=== PATIENT | male | born 1965 | race Hispanic/Latino ===

== ENCOUNTER 2017-08-14 05:58 | Observation (INO) | payer OTHER ==
[2017-08-13 10:48] LABS: BASOPHILS % (AUTO) 1.1 % (0.0-5.0); EOSINOPHILS % (AUTO) 2.2 % (0.0-8.0); HEMATOCRIT 41.2 % (42-54); LYMPHOCYTES % (AUTO) 31.4 % (21.0-51.0); MEAN CORPUSCULAR HEMOGLOBIN 31.5 pg (27.0-33.0); MEAN CORPUSCULAR HGB CONC 35.1 g/dL (32.0-36.0); MEAN CORPUSCULAR VOLUME 89.7 fL (79-99); MONOCYTES % (AUTO) 7.2 % (3.0-13.0); NEUTROPHILS % (AUTO) 58.1 % (40.0-77.0); NUCLEATED RED BLOOD CELLS 0.1 % (0.0-0.19); PLATELET COUNT (AUTO) 283 K/uL (130-400); RED CELL DISTRIBUTION WIDTH 12.6 % (11.0-15.5); WHITE BLOOD COUNT (AUTO) 6.6 K/uL (4.8-10.8)
[2017-08-13 10:50] VITALS: BP 119/78
[2017-08-13 10:57] LABS: APPEARANCE,URINE Clear (CLEAR); BILIRUBIN,URINE Negative (NEGATIVE); COLOR,URINE Yellow (YELLOW); GLUCOSE, URINE (UA) >=1000 mg/dL (NEGATIVE); KETONES,URINE Negative (NEGATIVE); LEUKOCYTE ESTERASE ,URINE Negative (NEGATIVE); NITRATE,URINE Negative (NEGATIVE); OCCULT BLOOD,URINE Negative (NEGATIVE); PH,URINE 5.5 (5.0-8.0); PROTEIN,URINE Negative (NEGATIVE)
[2017-08-13 10:59] LABS: POTASSIUM 4.2 mmol/L (3.5-5.1)
[2017-08-13 11:04] LABS: INR 0.97 (0.85-1.15); PARTIAL THROMBOPLASTIN TIME 25.7 SEC (26.3-35.5); PROTHROMBIN TIME 10.2 SEC (9.6-11.6)
[2017-08-13 11:30] LABS: BACTERIA,URINE Rare /HPF (None Seen); RBC,URINE 0-1 /HPF (0-1); SQUAMOUS EPITHELIAL CELL,UR 0-2 /LPF (0-2)
[2017-08-13 11:32] LABS: WBC,URINE 0-1 /HPF (0-1)
[~2017-08-14] VITALS: Ht 175.3 cm; Wt 81.1 kg
[2017-08-14] VITALS (14 sets, daily range): BP systolic 106–131; BP diastolic 66–94
[~2017-08-14 05:58] MED LIST: ASPI-1197 PO; CLON0.1T PO; FENO135C4 PO; ICOS1CAP PO; LISI10TA7 PO; METF500T7 PO; METO25TA6 PO; OMEP40CA37 PO
[2017-08-14] MEDS ORDERED: SODIUM CHLORIDE 0.9% 1000ML 1,000 ML IV ONE (06:24)
[2017-08-14] MEDS ORDERED: HEPARIN SODIUM 1000UNIT/ML 10ML VIAL ONE ×2 (07:09→07:53)
[2017-08-14] MEDS ORDERED: IOPAMIDOL-370 100 ML VIAL IV ONE (07:09)
[2017-08-14] MEDS ORDERED: IOPAMIDOL-370 75 ML VIAL IV ONE ×2 (07:09→07:53)
[2017-08-14] MEDS ORDERED: LIDOCAINE HCL 2% 20ML ONE (07:10)
[2017-08-14] MEDS ORDERED: NITROGLYCERIN 4.1 GM SPRAY TL ONE (08:13)
[2017-08-14] MEDS ORDERED: ASPIRIN 325MG EC TAB 325 MG TABLET.DR PO ONE (08:17)
[2017-08-14] MEDS ORDERED: CLOPIDOGREL BISULFATE 300 MG TAB ONE (08:17)
[2017-08-14] MEDS ORDERED: ACETAMINOPHEN-CODEINE 300/30MG TAB PO PRN (08:45)
[2017-08-14] MEDS ORDERED: ONDANSETRON HCL 4 MG/2 ML VIAL IVP SCH ×3 (08:45→12:30)
[2017-08-14] MEDS ORDERED: CLOP75TA14 PO (08:51)
[2017-08-14] MEDS ORDERED: MORPHINE SULFATE 5 MG/ML VIAL IVP SCH ×2 (09:00→12:30)
[2017-08-14] MEDS: **HM** VASCEPA 1GM PO SCH ×2 (09:00→20:57)
[2017-08-14] MEDS: METOPROLOL TARTRATE 25 MG TAB PO SCH ×2 (09:00→20:57)
[2017-08-14] MEDS: CLONIDINE HCL 0.1 MG TABLET PO SCH ×2 (09:00→20:58)
[2017-08-14] MEDS: CLOPIDOGREL BISULFATE 75 MG TAB PO SCH (09:00)
[2017-08-14] MEDS ORDERED: DEXTROSE 50%-WATER 50 ML DISP.SYRIN IV PRN (09:00)
[2017-08-14] MEDS: ACETAMINOPHEN-CODEINE 300/30MG TAB PO PRN ×2 (10:52→19:33)
[2017-08-14] MEDS: INSULIN HUMULIN R 100 UNIT/ML 3ML SQ SCH ×3 (11:41→21:55)
[2017-08-14 11:50] LABS: INR 1.02 (0.85-1.15); PROTHROMBIN TIME 10.7 SEC (9.6-11.6)
[2017-08-14] MEDS ORDERED: LISINOPRIL 10 MG TABLET PO SCH (21:00)
[2017-08-14] MEDS ORDERED: FENOFIBRIC ACID 135 MG PO SCH (21:00)
[2017-08-14] MEDS ORDERED: ASPIRIN 81MG TAB.CHEW PO SCH (21:00)
[2017-08-15 00:17] VITALS: BP 110/68
[2017-08-15 04:07] VITALS: BP 113/67
[2017-08-15] MEDS: INSULIN HUMULIN R 100 UNIT/ML 3ML SQ SCH (06:38)
[2017-08-15 07:00] VITALS: BP 107/64
[2017-08-15] MEDS: **HM** VASCEPA 1GM PO SCH (09:00)
[2017-08-15] MEDS: CLOPIDOGREL BISULFATE 75 MG TAB PO SCH (10:10)
[2017-08-15] MEDS: METOPROLOL TARTRATE 25 MG TAB PO SCH (10:10)
[2017-08-15] MEDS: CLONIDINE HCL 0.1 MG TABLET PO SCH (10:18)
[2017-08-15 11:00] VITALS: BP 120/73
== END 2017-08-15 12:00 | disposition home or self-care (01) ==
LOC: DAH 05:58 → 2AH 05:59 → DAH 05:59
PROVIDERS: ADMIT Internal Medicine Cardiovascular Disease; ATTEND Internal Medicine Cardiovascular Disease
DX: I25.119 Atherosclerotic heart disease of native coronary artery with unspecified angina pectoris (principal); E78.5 Hyperlipidemia, unspecified; E11.9 Type 2 diabetes mellitus without complications; E78.1 Pure hyperglyceridemia; Z98.61 Coronary angioplasty status; T82.855A Stenosis of coronary artery stent, initial encounter; Y83.1 Surgical operation with implant of artificial internal device as the cause of abnormal reaction of the patient, or of later complication, without mention of misadventure at the time of the procedure
CPT/HCPCS: 36415 ×2; 71010; 80048; 81001; 82948 ×5; 85025; 85610 ×2; 85730 ×2; 93005; 93458; 96372; 96374; A4606; C1725; C1769; C1874; C1887; C1894; C9600; G0378 ×30; J1644 ×2; J1815 ×3; J2270; J2405; J3490; J7030; Q9967 ×3

== ENCOUNTER → 2022-06-05 | Outpatient (CLI) | payer BC ==
[~2022-06-05] MED LIST changes: +AEC81 PO; -ASPI-1197 PO; -FENO135C4 PO; -ICOS1CAP PO; -LISI10TA7 PO; -METF500T7 PO; +METF750T46 PO; -METO25TA6 PO; +METO50TA18 PO; -OMEP40CA37 PO; +SEMA1PEN3 SQ
[2022-06-05 13:03] LABS: CREATININE 0.8 mg/dL (0.5-1.5); TOTAL PROTEIN, SERUM 7.7 g/dL (6.0-8.3)
== END | disposition home or self-care (01) ==
LOC: LAB 09:33
PROVIDERS: ATTEND Internal Medicine Cardiovascular Disease
DX: I25.10 Atherosclerotic heart disease of native coronary artery without angina pectoris (principal); E78.5 Hyperlipidemia, unspecified
CPT/HCPCS: 36415; 80053; 80061

== ENCOUNTER → 2023-04-24 | Outpatient (CLI) | payer BC ==
[2023-04-24 12:36] LABS: CHOLESTEROL 154 mg/dL (<200); HDL CHOLESTEROL 32 mg/dL (29-71); LDL DIRECT 33 mg/dL (0-99); TRIGLYCERIDES 651 mg/dL (30-200)
== END | disposition home or self-care (01) ==
LOC: LAB 09:30
PROVIDERS: ATTEND Internal Medicine Cardiovascular Disease
DX: E78.5 Hyperlipidemia, unspecified (principal); I25.10 Atherosclerotic heart disease of native coronary artery without angina pectoris
CPT/HCPCS: 36415; 80061